=== PATIENT | male | born 1995 | race Caucasian/White ===

== ENCOUNTER 2017-06-17 19:43 | Emergency (ER) | payer OTHER ==
[2017-06-17] MEDS ORDERED: Ibuprofen 800 MG TAB ONE (19:55)
--- NOTE | 2017-06-17 21:31 | RAD ---
RIGHT ANKLE THREE VIEWS: 06/17/17 No fracture was seen. The joint appears normal. The area around the point of interest delineated by a marker showed no acute change. IMPRESSION: No acute finding. POS: HOME
--- NOTE | 2017-06-17 21:32 | RAD ---
RIGHT FOOT THREE VIEWS: 06/17/17 Three views showed no fracture or acute bony change. All bones appeared intact. IMPRESSION: No acute finding. POS: HOME
== END 2017-06-17 20:59 | disposition home or self-care (01) ==
LOC: BURERS 19:43
DX: S90.31XA Contusion of right foot, initial encounter (principal); F17.220 Nicotine dependence, chewing tobacco, uncomplicated; W31.89XA Contact with other specified machinery, initial encounter; Y92.69 Other specified industrial and construction area as the place of occurrence of the external cause